=== PATIENT | male | born 1995 | race Caucasian/White ===

== ENCOUNTER 2016-05-21 21:17 | Emergency (ER) | payer OTHER ==
--- NOTE | 2016-05-22 08:37 | RAD ---
Exam: Two-view left humerus COMPARISON: None INDICATION: Hit by 2 x 4 under left humerus which forced abduction. Pain persists. On the job injury. FINDINGS: AP and lateral views of the left humerus were obtained. Overall normal bone mineralization. No apparent soft tissue swelling. Alignment is normal. No fracture is identified. IMPRESSION: Negative left humerus.
== END 2016-05-22 01:02 | disposition home or self-care (01) ==
LOC: ED 21:17
DX: S40.022A Contusion of left upper arm, initial encounter (principal); W22.8XXA Striking against or struck by other objects, initial encounter; Y92.89 Other specified places as the place of occurrence of the external cause; Y99.0 Civilian activity done for income or pay; F17.210 Nicotine dependence, cigarettes, uncomplicated